=== PATIENT | male | born 1975 | race Two or more races ===

== ENCOUNTER 2018-03-05 21:59 | Emergency (ER) | payer MEDICAID ==
[~2018-03-05] VITALS: Ht 170.2 cm; Wt 72.6 kg
[~2018-03-05 21:59] MED LIST: ALBUTEROL SULF8.5 GM INH; ALBUTEROL2.5 MG/3 M HHN; ALBUTEROL2.5 MG/3 M INH; AZITHROMYCIN250 MG ORAL; BENADRYL50 MG ORAL; DULERA 100 MCG/13 GM INH; DULERA 200 MCG/13 GM IH; FLOVENT2 PUFF2 INH; IPRATROPIU0.2 MG/1 M HHN; MEDROL DOSEPAK4 MG ORAL; NAPHCON-A EYE D15 ML BOTH EYES; PREDNISONE20 MG ORAL; PROAIR HFA8.5 GM INH; ZITHROMAX250 MG ORAL
[2018-03-05 22:14] VITALS: BP 148/102
[2018-03-05] MEDS ORDERED: Ipratropium 0.02% Inh Soln 2.5ml UD HHN ONE (22:15)
[2018-03-05] MEDS ORDERED: Albuterol ud Inhalation HHN ONE (22:15)
--- NOTE | 2018-03-05 22:18 | Emergency Room Report ---
History of Present Illness General Chief Complaint: Dyspnea/Respdistress Source: Patient Present Illness HPI Patient presents with complaints of asthma exacerbation Patient has a new bed this could be possibly exacerbating his asthma Denies any chest pain denies any back or flank pain Denies any dysuria frequency Denies any recent travel Denies any fevers he did have a mild cough Allergies: Coded Allergies: No Known Allergies (Unverified , 02/10/13) Patient History Past Medical History: see triage record Pertinent Family History: none Reviewed Nursing Documentation: PMH: Agreed; PSxH: Agreed Nursing Documentation-PMH Hx Asthma: Yes Review of Systems All Other Systems: negative except mentioned in HPI Physical Exam Vital Signs Date Time Temp Pulse Resp B/P (MAP) Pulse Ox O2 Delivery O2 Flow Rate FiO2 03/05/18 22:03 98.0 97 16 148/102 91 Room Air 98.1 Sp02 EP Interpretation: reviewed, normal General Appearance: well appearing, no apparent distress Head: normocephalic, atraumatic Eyes: bilateral eye PERRL, bilateral eye EOMI ENT: hearing grossly normal, normal pharynx, TMs + canals normal, uvula midline Neck: full range of motion, supple, no meningismus, no bony tend Respiratory: no respiratory distress, no retraction, no accessory muscle use, wheezing - Bilaterally Cardiovascular #1: normal peripheral pulses, regular rate, rhythm, no edema, no gallop, no JVD, no murmur Gastrointestinal: normal bowel sounds, non tender, soft, no mass, no organomegaly, non-distended, no guarding, no hernia, no pulsatile mass, no rebound Genitourinary: no CVA tenderness Musculoskeletal: normal inspection Neurologic: oriented x3, responsive, harness repairer III-XII nml as tested, motor strength/ tone normal, sensory intact Psychiatric: mood/affect normal Skin: normal color, no rash, warm/dry, palpation normal Lymphatic: normal inspection, no adenopathy Medical Decision Making Diagnostic Impression: Primary Impression: Asthma attack ER Course Multiple differentials considered Including but not limited to cardiac, cardiopulmonary, infectious Patient's clinical exam and history is in line with likely asthma exacerbation He has done much better throughout the stay with acute intervention Stable for close outpatient follow-up Last Vital Signs Date Time Temp Pulse Resp B/P (MAP) Pulse Ox O2 Delivery O2 Flow Rate FiO2 03/05/18 22:03 98.0 97 16 148/102 91 Room Air 98.1 Status: improved Disposition: HOME, SELF-CARE Condition: Improved Scripts Prednisone* (PREDNISONE*) 20 Mg Tablet 20 MG ORAL BID, #10 TAB Prov: Carlos Freeman DO 03/05/18 Albuterol Sulfate* (ALBUTEROL SULFATE MDI*) 8.5 Gm Hfa.aer.ad 2 PUFF INH Q6H, #1 EA 0 Refills Prov: Carlos Freeman DO 03/05/18 Additional Instructions: Patient is provided with the discharge instructions notified to follow up with primary doctor in the next 2-3 days otherwise return to the er with any worsening symptoms. Please note that this report is being documented using [employer] technology. This can lead to erroneous entry secondary to incorrect interpretation by the dictating instrument. Carlos Freeman DO March 05, 2018 22:18
[2018-03-05] MEDS ORDERED: PREDNISONE20 MG ORAL (23:02)
[2018-03-05] MEDS ORDERED: ALBUTEROL SULF8.5 GM INH (23:02)
[2018-03-05 23:19] VITALS: BP 136/84
== END 2018-03-05 23:19 | disposition home or self-care (01) ==
LOC: EMR 22:23
DX: J45.901 Unspecified asthma with (acute) exacerbation (principal)
CPT/HCPCS: 94640; 94664; 99284; J7512

== ENCOUNTER 2018-12-18 20:13 | Emergency (ER) | payer MEDICAID ==
[~2018-12-18] VITALS: Ht 170.2 cm; Wt 72.6 kg
--- NOTE | 2018-12-18 20:26 | NUR ---
ED Nurse Note: Patient walk in c/o lower abdominal pain, groin pain, diarrhea for 3 days. Patient states he noticed bright red blood in his stool today. AO4. NAD. VSS
--- NOTE | 2018-12-18 20:39 | NUR ---
ED Nurse Note: IV access established. Blood and urine collected; sent down to lab with Tameka Cerrato.
[2018-12-18 20:43] VITALS: BP 132/86
--- NOTE | 2018-12-18 21:06 | Emergency Room Report ---
History of Present Illness General Chief Complaint: Abdominal Pain Source: Patient Present Illness [facility] This is a 43-year-old male with no past respiratory issue. He presents with chief complaint abdominal pain with diarrhea for last 3 days. Initially had fever. No more fever. Now noticed some blood in his diarrhea. No recent travel. No recent antibiotics. No nausea no vomiting. Pain is crampy and sharp in nature. 7 out of 10. Localized to the lower quadrants. No urinary complaint. Did take Pepto-Bismol in the beginning. Allergies: Coded Allergies: No Known Allergies (Unverified , 02/10/13) Patient History Past Medical History: see triage record, old chart reviewed Past Surgical History: none Pertinent Family History: none Social History: Denies: smoking Immunizations: other Reviewed Nursing Documentation: PMH: Agreed; PSxH: Agreed Nursing Documentation-PMH Past Medical History: No History, Except For Hx Asthma: Yes Review of Systems Constitutional: Reports: fever Eye: Denies: eye pain, blurred vision ENT: Denies: ear pain, nose congestion, throat swelling Respiratory: Denies: cough, shortness of breath Cardiovascular: Denies: chest pain, palpitations Gastrointestinal: Reports: abdominal pain, diarrhea; Denies: nausea, vomiting Musculoskeletal: Denies: back pain, joint pain Skin: Denies: rash Neurological: Denies: headache, numbness Endocrine: Denies: increased thirst, increased urine Hematologic/Lymphatic: Denies: easy bruising All Other Systems: negative except mentioned in HPI Physical Exam Vital Signs Date Time Temp Pulse Resp B/P (MAP) Pulse Ox O2 Delivery O2 Flow Rate FiO2 12/18/18 20:23 99.1 112 18 132/86 94 Room Air vitals unremarkable except for tachycardia Sp02 EP Interpretation: reviewed, normal General Appearance: well appearing, no apparent distress, alert Head: normocephalic, atraumatic Eyes: bilateral eye PERRL, bilateral eye EOMI ENT: hearing grossly normal, normal pharynx Neck: full range of motion, supple, no meningismus Respiratory: chest non-tender, lungs clear, normal breath sounds Cardiovascular #1: regular rate, rhythm, no murmur Gastrointestinal: no mass, no organomegaly, no bruit, non-distended, abnormal bowel sounds - Hyperactive, tenderness - Left lower quadrant tenderness Musculoskeletal: back normal, gait/station normal, normal range of motion Psychiatric: mood/affect normal Skin: warm/dry Medical Decision Making Diagnostic Impression: Primary Impression: Diverticulitis ER Course Patient with abdominal pain and fever. He has diverticulitis on CT scan. CT scan is also concerning for a small density adjacent to the diverticulitis measuring 2.4 x 8 mm. There is no gas noted. This may represent a phlegmon versus a developing abscess. There is no gas noted within the collection however. Patient said he felt better. He still has pain localized to the left lower quadrant. No acute abdomen. No evidence of any perforation. He is tolerating by mouth here. He said that he prefers to go home with antibiotics and if things get worse he'll come back. IV antibiotics given here. Lab Results Impression labs with leukocytosis CT/MRI/US Diagnostic Results CT/MRI/US Diagnostic Results : Imaging Test Ordered: CT abdomen and pelvis Impression Read by radiologist. Diverticulitis. Pericolonic inflammatory changes. Soft tissue density adjacent to inflammatory area. Last Vital Signs Date Time Temp Pulse Resp B/P (MAP) Pulse Ox O2 Delivery O2 Flow Rate FiO2 12/18/18 20:44 100 18 Room Air 12/18/18 20:43 99.1 132/86 99 Status: improved Disposition: HOME, SELF-CARE Condition: Stable Scripts Ibuprofen* (MOTRIN*) 600 Mg Tablet 600 MG ORAL THREE TIMES A DAY, #30 TAB 0 Refills Prov: Bib Monae MD 12/18/18 Metronidazole* (FLAGYL*) 500 Mg Tablet 500 MG ORAL BID, #14 TAB Prov: Bib Monae MD 12/18/18 Ciprofloxacin Hcl* (CIPROFLOXACIN HCL*) 500 Mg Tablet 500 MG ORAL Q12H, #14 TAB 0 Refills Prov: Bib Monae MD 12/18/18 Additional Instructions: Follow-up with your doctor or return here within 2 days for recheck. return sooner for fever, increasing pain, or any concern. Bib Monae MD Dec 18, 2018 21:06
[2018-12-18] MEDS ORDERED: Ketorolac 30mg Inj IV ONE (21:15)
[2018-12-18 21:28] LABS: APPEARANCE,URINE CLEAR; BILIRUBIN, URINE NEGATIVE (NEGATIVE); GLUCOSE, URINE (UA) NEGATIVE (NEGATIVE); KETONES,URINE 2+ (NEGATIVE); LEUKOCYTE ESTERASE ,URINE NEGATIVE (NEGATIVE); NITRITE,URINE NEGATIVE (NEGATIVE); PH,URINE 5 (4.5-8.0); PROTEIN,URINE 2+ (NEGATIVE); UROBILINOGEN,URINE NORMAL MG/DL (0.0-1.0)
[2018-12-18 21:29] LABS: COLOR,URINE YELLOW
[2018-12-18 21:32] LABS: BASOPHILS % (AUTO) 1.9 % (0.0-2.0); HEMATOCRIT 42.9 % (42.0-52.0); HEMOGLOBIN 14.2 G/DL (14.2-18.0); LYMPHOCYTES % (AUTO) 24.7 % (20.0-45.0); MEAN CORPUSCULAR VOLUME 85 FL (80-99); MONOCYTES % (AUTO) 9.5 % (1.0-10.0); PLATELET COUNT 212 K/UL (150-450); RED BLOOD COUNT 5.03 M/UL (4.70-6.10); RED CELL DISTRIBUTION WIDTH 11.3 % (11.6-14.8); WHITE BLOOD COUNT 15.9 K/UL (4.8-10.8)
[2018-12-18 21:50] LABS: ANION GAP 10 mmol/L (5-15); BLOOD UREA NITROGEN 16 mg/dL (7-18); CALCIUM 9.2 MG/DL (8.5-10.1); CARBON DIOXIDE 29 MMOL/L (21-32); CHLORIDE 97 MMOL/L (98-107); CREATININE 1.2 MG/DL (0.55-1.30); POTASSIUM 3.2 MMOL/L (3.5-5.1); SODIUM 136 MMOL/L (136-145)
[2018-12-18 21:54] LABS: ALANINE AMINOTRANSFERASE 32 U/L (12-78); ALBUMIN 3.6 G/DL (3.4-5.0); ALBUMIN/GLOBULIN RATIO 0.7 (1.0-2.7); ALKALINE PHOSPHATASE 91 U/L (46-116); ASPARTATE AMINO TRANSFERASE 18 U/L (15-37)
[2018-12-18] MEDS ORDERED: METRONIDAZOLE500 MG ORAL (22:25)
[2018-12-18] MEDS ORDERED: IBUPROFEN600 MG ORAL (22:25)
[2018-12-18] MEDS ORDERED: CIPROFLOXACIN500 M2 ORAL (22:25)
[2018-12-18] MEDS ORDERED: Ciprofloxacin 500mg tab ORAL ONE (22:30)
[2018-12-18 23:00] VITALS: BP 132/86
--- NOTE | 2018-12-18 23:00 | NUR ---
ED Nurse Note: Patient cleared cleared for discharge per ERMD. AO4. NAD. VSS. Accompanied by spouse. Patient given prescriptions and discharge instructions; verbalized understanding.IV and ID removed. Patient ambulated steady out of ED with all belongings.
== END 2018-12-18 23:00 | disposition home or self-care (01) ==
LOC: EMR 20:56
DX: K57.32 Diverticulitis of large intestine without perforation or abscess without bleeding (principal); J45.909 Unspecified asthma, uncomplicated
CPT/HCPCS: 36415; 74176; 80053; 81003; 83690; 85025; 96361; 96365; 96375; 99284; J1885

== ENCOUNTER 2019-02-10 21:10 | Emergency (ER) | payer MEDICAID ==
[~2019-02-10] VITALS: Ht 170.2 cm; Wt 72.6 kg
[~2019-02-10 21:10] MED LIST changes: +CIPROFLOXACIN500 M2 ORAL; +IBUPROFEN600 MG ORAL; +METRONIDAZOLE500 MG ORAL
[2019-02-10 21:14] VITALS: BP 110/80
--- NOTE | 2019-02-10 21:14 | NUR ---
ED Nurse Note: WALKIN PATIENT PRESENTS WITH COMPLAINTS OF ASTHMA ATTACK EARLIER TODAY AND HE HAS NO INHALER.
--- NOTE | 2019-02-10 21:57 | NUR ---
ED Nurse Note: nuclear medicine pet ct technologist at bediside, patient is beginning breathing treatment.
[2019-02-10] MEDS: Albuterol ud Inhalation HHN SCH ×3 (21:58→22:40)
[2019-02-10] MEDS: Ipratropium 0.02% Inh Soln 2.5ml UD HHN SCH ×3 (21:58→22:40)
[2019-02-10] MEDS ORDERED: PREDNISONE20 MG ORAL (22:49)
[2019-02-10] MEDS ORDERED: PROAIR HFA8.5 GM INH (22:49)
--- NOTE | 2019-02-10 23:08 | Emergency Room Report ---
History of Present Illness General Chief Complaint: Asthma Source: Patient Present Illness HPI 43-year-old male presents ED for evaluation. Patient complaining of shortness of breath since this afternoon. History of asthma. States he ran out of his inhaler. States chest tightness. Denies fevers or chills. Denies cough. Denies chest pain. Denies sick contacts or recent travel. No other aggravating relieving factors. Denies any other associated symptoms Allergies: Coded Allergies: No Known Allergies (Unverified , 02/10/13) Patient History Past Medical History: asthma Past Surgical History: none Pertinent Family History: none Social History: Denies: smoking, alcohol use, drug use Immunizations: UTD Reviewed Nursing Documentation: PMH: Agreed; PSxH: Agreed Nursing Documentation-PMH Hx Asthma: Yes Review of Systems All Other Systems: negative except mentioned in HPI Physical Exam Vital Signs Date Time Temp Pulse Resp B/P (MAP) Pulse Ox O2 Delivery O2 Flow Rate FiO2 02/10/19 21:14 98.6 84 20 110/80 91 Room Air 02/10/19 21:58 21 Sp02 EP Interpretation: reviewed, normal General Appearance: no apparent distress, alert, GCS 15, non-toxic Head: normocephalic, atraumatic Eyes: bilateral eye normal inspection, bilateral eye PERRL ENT: hearing grossly normal, normal pharynx, no angioedema, normal voice Neck: full range of motion, supple/symm/no masses Respiratory: chest non-tender, decreased breath sounds, speaking full sentences , wheezing Cardiovascular #1: regular rate, rhythm, no edema Cardiovascular #2: 2+ carotid (R), 2+ carotid (L), 2+ radial (R), 2+ radial (L) , 2+ dorsalis pedis (R), 2+ dorsalis pedis (L) Gastrointestinal: normal bowel sounds, non tender, soft, non-distended, no guarding, no rebound Rectal: deferred Genitourinary: normal inspection, no CVA tenderness Musculoskeletal: back normal, gait/station normal, normal range of motion, non- tender Neurologic: alert, oriented x3, responsive, motor strength/tone normal, sensory intact, speech normal Psychiatric: judgement/insight normal, memory normal, mood/affect normal, no suicidal/homicidal ideation Reflexes: 3+ bicep (R), 3+ bicep (L), 3+ tricep (R), 3+ tricep (L), 3+ knee (R) , 3+ knee (L) Skin: normal color, no rash, warm/dry, well hydrated Lymphatic: no adenopathy Medical Decision Making Diagnostic Impression: Primary Impression: Asthma exacerbation Qualified Codes: J45.901 - Unspecified asthma with (acute) exacerbation ER Course Hospital Course 43-year-old male presents to ED complaining of SOB, wheezing Differential diagnoses include: URI, bronchitis, asthma/COPD, pneumonia Clinical course Patient placed on stretcher. After initial history, physical exam reveals a male in no acute distress. Bilateral TM unremarkable. No pharyngeal erythema. No tonsillar exudates. No lymphadenopathy. Decreased breath sounds with wheezing noted bilaterally. I ordered prednisone, albuterol/Atrovent 3. On reassessment symptoms improved. O2 sats improved. Breath sounds increased. Discussed findings with patient. Safe for discharge and close outpatient follow -up. Does not have a PMD. We'll provide referrals Diagnosis - asthma exacerbation Stable and discharged home with prescriptions for albuterol inhaler, prednisone. Instructed to followup with PMD. Return to ED if symptoms recur or worsen Last Vital Signs Date Time Temp Pulse Resp B/P (MAP) Pulse Ox O2 Delivery O2 Flow Rate FiO2 02/10/19 22:40 94 18 98 02/10/19 22:39 Room Air 21 02/10/19 21:14 98.6 110/80 Status: improved Disposition: HOME, SELF-CARE Condition: Stable Scripts Prednisone* (PREDNISONE*) 20 Mg Tablet 40 MG ORAL DAILY, #10 TAB Prov: Akash Anna MD 02/10/19 Albuterol Sulfate* (PROAIR HFA*) 8.5 Gm Hfa.aer.ad 2 PUFFS INH Q6H PRN for Shortness of Breath, #8.5 GM 0 Refills Prov: Akash Anna MD 02/10/19 Referrals: [facility] Patient Instructions: Asthma, Adult, [id number] Akash Anna MD Feb 10, 2019 23:08
[2019-02-10 23:26] VITALS: BP 110/80
--- NOTE | 2019-02-10 23:26 | NUR ---
ED Nurse Note: Patient cleared for discharge by ERMD, patient verbalized understanding of discharge instructions. Patient ID band removed. Patient is A&Ox4 with no s/s of acute distress, lung sounds are clearer, patient saturation on room air @ 100%. Patient discharged to home accompanied by .
== END 2019-02-10 23:26 | disposition home or self-care (01) ==
LOC: EMR 21:36
DX: J45.901 Unspecified asthma with (acute) exacerbation (principal)
CPT/HCPCS: 94640; 94664; 99284; J7512

== ENCOUNTER 2019-04-21 17:34 | Emergency (ER) | payer MEDICAID ==
[~2019-04-21] VITALS: Ht 170.2 cm; Wt 71.2 kg
--- NOTE | 2019-04-21 17:41 | NUR ---
ED Nurse Note: Patient walked into ED c/o asthma attack since this morning today. patient is alert awake x4 ambulatory, skin is warm to touch.
[2019-04-21] MEDS: Albuterol ud Inhalation HHN SCH ×3 (17:57→19:00)
--- NOTE | 2019-04-21 17:58 | Emergency Room Report ---
History of Present Illness General Chief Complaint: Asthma Source: Patient, Significant Other Present Illness HPI The patient presents with dyspnea and wheezing. He has a history of asthma. He started getting sick last night. He has been using his nebulizer and inhaler every hour. He feels is not helping at this time. He is not taking steroids at the moment. He has been coughing up yellow phlegm and finds it hard to expectorate. He also has pain when he is coughing anteriorly. There is no exertional chest pain. His states that this is not his worst attack. In the past these had to have CPAP by paramedics but has never been intubated. He is not taking steroids at this time. No fevers, chills, palpitations, nausea, vomiting, diarrhea, dysuria, abdominal pain, depression, visual changes, headache. Allergies: Coded Allergies: No Known Allergies (Unverified , 02/10/13) Patient History Past Medical History: see triage record Social History: Denies: smoking Social History Narrative , not working, born in [facility] Reviewed Nursing Documentation: PMH: Agreed; PSxH: Agreed Nursing Documentation-PMH Hx Asthma: Yes Review of Systems All Other Systems: negative except mentioned in HPI Physical Exam Vital Signs Date Time Temp Pulse Resp B/P (MAP) Pulse Ox O2 Delivery O2 Flow Rate FiO2 04/21/19 17:38 98.4 110 20 140/97 (111) 91 Room Air Sp02 EP Interpretation: reviewed, abnormal - Reviewed as low by me General Appearance: well appearing, alert, GCS 15, mild distress Head: normocephalic Eyes: bilateral eye normal inspection, bilateral eye PERRL, bilateral eye EOMI ENT: moist mucus membranes Neck: supple Respiratory: respiratory distress - Minimal, decreased breath sounds, wheezing , expiration, inspiration Cardiovascular #1: no edema, tachycardia Cardiovascular #2: 2+ radial (R) Gastrointestinal: non tender, soft, decreased bowel sounds Genitourinary: no CVA tenderness Musculoskeletal: back normal, gait/station normal, normal range of motion, no calf tenderness Neurologic: alert, oriented x3, grossly normal Psychiatric: mood/affect normal Skin: normal inspection, normal color Medical Decision Making Diagnostic Impression: Primary Impression: Asthma exacerbation Qualified Codes: J45.51 - Severe persistent asthma with (acute) exacerbation Additional Impression: Eosinophilia ER Course The patient presents with wheezing and dyspnea. Differential includes status asthmaticus, allergic reaction, bronchitis, pneumonia amongst others. Evaluation will be with EKG, chest x-ray and labs. The patient will be treated with epinephrine IM, breathing treatments and Solu-Medrol IV. In addition he will get IV hydration. Based on the severity the patient will most likely need to be admitted for observation. EKG ST. CXR no infiltrates. Labs with slight leukocytosis. Eosinophilia. Improved after tx. Due to purulent sputum, antibiotics indicated. Ambulates to toilet without sig dyspnea. Does not want to be admitted. After ambulation still expiratory wheezes right base. These are minimal. The patient still insists on going home. One more breathing treatment is given. Patient advised to return if not doing well. Patient stable for outpatient observation and treatment. Labs Test 04/21/19 17:55 04/21/19 18:55 White Blood Count 13.1 K/UL (4.8-10.8) Red Blood Count 5.11 M/UL (4.70-6.10) Hemoglobin 14.9 G/DL (14.2-18.0) Hematocrit 43.8 % (42.0-52.0) Mean Corpuscular Volume 86 FL (80-99) Mean Corpuscular Hemoglobin 29.2 PG (27.0-31.0) Mean Corpuscular Hemoglobin Concent 34.1 G/DL (32.0-36.0) Red Cell Distribution Width 12.3 % (11.6-14.8) Platelet Count 251 K/UL (150-450) Mean Platelet Volume 10.3 FL (6.5-10.1) Neutrophils (%) (Auto) 48.2 % (45.0-75.0) Lymphocytes (%) (Auto) 29.7 % (20.0-45.0) Monocytes (%) (Auto) 7.4 % (1.0-10.0) Eosinophils (%) (Auto) 12.3 % (0.0-3.0) Basophils (%) (Auto) 2.4 % (0.0-2.0) Prothrombin Time 10.1 SEC (9.30-11.50) Prothromb Time International Ratio 0.9 (0.9-1.1) Activated Partial Thromboplast Time 28 SEC (23-33) Sodium Level 143 MMOL/L (136-145) Potassium Level 3.5 MMOL/L (3.5-5.1) Chloride Level 106 MMOL/L (98-107) Carbon Dioxide Level 24 MMOL/L (21-32) Anion Gap 13 mmol/L (5-15) Blood Urea Nitrogen 14 mg/dL (7-18) Creatinine 1.1 MG/DL (0.55-1.30) Estimat Glomerular Filtration Rate > 60 mL/min (>60) Glucose Level 129 MG/DL (74-106) Lactic Acid Level 0.60 mmol/L (0.4-2.0) Calcium Level 9.4 MG/DL (8.5-10.1) Magnesium Level 2.2 MG/DL (1.8-2.4) Total Bilirubin 0.7 MG/DL (0.2-1.0) Aspartate Amino Transf (AST/SGOT) 22 U/L (15-37) Alanine Aminotransferase (ALT/SGPT) 35 U/L (12-78) Alkaline Phosphatase 80 U/L (46-116) Total Creatine Kinase 188 U/L (26-308) Troponin I 0.000 ng/mL (0.000-0.056) Total Protein 8.0 G/DL (6.4-8.2) Albumin 4.6 G/DL (3.4-5.0) Globulin 3.4 g/dL Albumin/Globulin Ratio 1.4 (1.0-2.7) Urine Color Yellow Urine Appearance Slightly cloudy Urine pH 5 (4.5-8.0) Urine Specific [place] 1.025 (1.005-1.035) Urine Protein 1+ (NEGATIVE) Urine Glucose (UA) Negative (NEGATIVE) Urine Ketones Negative (NEGATIVE) Urine Blood 1+ (NEGATIVE) Urine Nitrite Negative (NEGATIVE) Urine Bilirubin Negative (NEGATIVE) Urine Urobilinogen Normal MG/DL (0.0-1.0) Urine Leukocyte Esterase Negative (NEGATIVE) Urine RBC 2-4 /HPF (0 - 0) Urine WBC 0-2 /HPF (0 - 0) Urine Squamous Epithelial Cells Occasional /LPF Urine Calcium Oxalate Crystals Many /LPF (NONE) Urine Bacteria Few /HPF (NONE) Urine Mucus Moderate /LPF (NONE/OCC) EKG Diagnostic Results Rate: tachycardiac Rhythm: NSR ST Segments: no acute changes - LAE Rhythm Strip Diag. Results EP Interpretation: yes Rhythm: no PVC's, no ectopy, other - Sinus tachycardia Last Vital Signs Date Time Temp Pulse Resp B/P (MAP) Pulse Ox O2 Delivery O2 Flow Rate FiO2 04/21/19 19:55 98.4 103 18 132/91 100 Room Air 21 Status: improved Disposition: HOME, SELF-CARE Condition: Improved Scripts Amoxicillin* (AMOXIL*) 500 Mg Capsule 500 MG ORAL THREE TIMES A DAY, #21 CAP Prov: Portillo Hager MD 04/21/19 Beclomethasone Dipropionate 40MCG Oral Inh (QVAR 40*) 7.3 Gm Aer.w.adap 2 PUFFS INH TWICE A DAY, #7.3 GM 0 Refills Use this when you are not taking prednisone if wheezing. Prov: Portillo Hager MD 04/21/19 Prednisone* (PREDNISONE*) 20 Mg Tablet 40 MG ORAL DAILY, #10 TAB Prov: Portillo Hager MD 04/21/19 Albuterol Sulfate* (ALBUTEROL SULFATE HHN*) 2.5 Mg/3 Ml Vial.neb 2.5 MG HHN Q4H PRN for Shortness of Breath, #25 VIAL Prov: Portillo Hager MD 04/21/19 Albuterol Sulfate* (ALBUTEROL SULFATE MDI*) 8.5 Gm Hfa.aer.ad 2 PUFF INH Q6H, #1 EA 0 Refills Prov: Portillo Hager MD 04/21/19 Portillo aHger MD Apr 21, 2019 17:58
[2019-04-21] MEDS ORDERED: Ipratropium 0.02% Inh Soln 2.5ml UD HHN ONE (18:00)
[2019-04-21] MEDS ORDERED: EPINEPHrine 1mg/1ml Amp IM ONE (18:00)
[2019-04-21] MEDS ORDERED: Solu-MEDROL 125mg Inj IVP ONE (18:00)
[2019-04-21 18:17] LABS: BASOPHILS % (AUTO) 2.4 % (0.0-2.0); EOSINOPHILS % (AUTO) 12.3 % (0.0-3.0); HEMATOCRIT 43.8 % (42.0-52.0); HEMOGLOBIN 14.9 G/DL (14.2-18.0); LYMPHOCYTES % (AUTO) 29.7 % (20.0-45.0); MEAN CORPUSCULAR VOLUME 86 FL (80-99); MONOCYTES % (AUTO) 7.4 % (1.0-10.0); NEUTROPHILS % (AUTO) 48.2 % (45.0-75.0); PLATELET COUNT 251 K/UL (150-450); RED BLOOD COUNT 5.11 M/UL (4.70-6.10); RED CELL DISTRIBUTION WIDTH 12.3 % (11.6-14.8); WHITE BLOOD COUNT 13.1 K/UL (4.8-10.8)
[2019-04-21 18:24] LABS: ANION GAP 13 mmol/L (5-15); BLOOD UREA NITROGEN 14 mg/dL (7-18); CALCIUM 9.4 MG/DL (8.5-10.1); CARBON DIOXIDE 24 MMOL/L (21-32); CHLORIDE 106 MMOL/L (98-107); CREATININE 1.1 MG/DL (0.55-1.30); POTASSIUM 3.5 MMOL/L (3.5-5.1); SODIUM 143 MMOL/L (136-145)
[2019-04-21 18:25] LABS: INR 0.9 (0.9-1.1)
[2019-04-21 18:39] LABS: ALANINE AMINOTRANSFERASE 35 U/L (12-78); ALBUMIN 4.6 G/DL (3.4-5.0); ALBUMIN/GLOBULIN RATIO 1.4 (1.0-2.7); ALKALINE PHOSPHATASE 80 U/L (46-116); ASPARTATE AMINO TRANSFERASE 22 U/L (15-37); BILIRUBIN,TOTAL 0.7 MG/DL (0.2-1.0); CREATINE KINASE 188 U/L (26-308)
[2019-04-21 18:45] VITALS: BP 132/91
--- NOTE | 2019-04-21 19:02 | NUR ---
ED Nurse Note: UA SENT TO LAB/ AT BEDSIDE
--- NOTE | 2019-04-21 19:07 | NUR ---
HAND-OFF: Report given to Viviane AVILA.
[2019-04-21 19:08] LABS: BILIRUBIN, URINE NEGATIVE (NEGATIVE); GLUCOSE, URINE (UA) NEGATIVE (NEGATIVE); KETONES,URINE NEGATIVE (NEGATIVE); LEUKOCYTE ESTERASE ,URINE NEGATIVE (NEGATIVE); NITRITE,URINE NEGATIVE (NEGATIVE); PH,URINE 5 (4.5-8.0); PROTEIN,URINE 1+ (NEGATIVE); UROBILINOGEN,URINE NORMAL MG/DL (0.0-1.0)
[2019-04-21 19:14] LABS: APPEARANCE,URINE SLIGHTLY CLOUDY; COLOR,URINE YELLOW
--- NOTE | 2019-04-21 19:15 | NUR ---
ED Nurse Note: RECIEVED REPORT FROM AM NURSE TO RESUME CARE, PT IN BED AWAKE, ALERT AND ORIENTED X 4, PT IS HERE FOR ASTHMA AND BEING TREATED, PT DENIES CP OR ANY PAIN, NO SOB OR LABORED BERATHING NOTED AT REST, PT SPOUSE AT BEDSIDE, HS PATENT SLINE LOCK IN RIGHT AC, WILL RESUME CARE ORDERED AND CLOSELY MONITOR.
[2019-04-21] MEDS ORDERED: QVAR7.3 GM INH (19:45)
[2019-04-21] MEDS ORDERED: AMOXICILLIN500 MG ORAL (19:45)
[2019-04-21] MEDS ORDERED: ALBUTEROL SULF8.5 GM INH (19:45)
[2019-04-21] MEDS ORDERED: PREDNISONE20 MG ORAL (19:45)
[2019-04-21] MEDS ORDERED: ALBUTEROL2.5 MG/3 M HHN (19:45)
[2019-04-21 19:55] VITALS: BP 132/91
--- NOTE | 2019-04-21 19:55 | NUR ---
ED Nurse Note: ER DISCHARGE NOTE: Patient is cleared to be discharged per ERMD, pt is aox4, on room air, with stable vital signs. pt was given dc and prescription instructions, pt was able to verbalize understanding, pt id band and iv site removed without complications. pt is able to ambulate with steady gait. pt took all belongings. d/c by MARGARITA Miller.
--- NOTE | 2019-04-22 09:49 | Diagnostic Imaging Report ---
Indication: Dyspnea Comparison: 02/19/2016 A single view chest radiograph was obtained. Findings: Cardiomediastinal appearance is within normal limits for age. The lungs are clear. Pulmonary vascularity is appropriate. The diaphragmatic contour is smooth and costophrenic angles are sharp. No pleural effusions are identified. The bones are unremarkable. Impression: No acute findings
--- NOTE | 2019-04-23 15:59 | Cardiology Report ---
APPROVED REPORT EKG Measurement Heart [id number] Sinus tachycardia Possible Left atrial enlargement Nonspecific T wave abnormality Abnormal ECG
== END 2019-04-21 19:55 | disposition home or self-care (01) ==
LOC: EMR 18:48
DX: J45.51 Severe persistent asthma with (acute) exacerbation (principal); D72.1 Eosinophilia; D72.829 Elevated white blood cell count, unspecified; R00.0 Tachycardia, unspecified
CPT/HCPCS: 36415; 71045; 80053; 81003; 82550; 83605; 83735; 84484; 85025; 85610; 85730; 93005; 94640; 96361; 96372; 96374; 99284; J0171; J2930